=== PATIENT | male | born 1965 | race African-American/Black ===

== ENCOUNTER → 2016-12-07 09:13 | Outpatient (CLI) | payer MEDICARE ==
[2016-12-07 10:12] LABS: ALBUMIN 3.4 g/dL (3.4-5.0); BILIRUBIN - DIRECT 0.11 mg/dL (0.00-0.30); BILIRUBIN - INDIRECT 0.22 mg/dL (0.00-1.00); BILIRUBIN - TOTAL 0.33 mg/dL (0.2-1.3); PROTEIN - SERUM 8.2 g/dL (6.4-8.2)
== END | disposition home or self-care (01) ==
LOC: D.US 09:13
PROVIDERS: Internal Medicine Gastroenterology
DX: K76.0 Fatty (change of) liver, not elsewhere classified (principal)

== ENCOUNTER → 2017-06-09 09:01 | Outpatient (CLI) | payer MEDICARE ==
[~2017-06-09 09:01] MED LIST: OMEPRAZOLE20 M1 PO; PEPCID40 MG PO; TIMOPTIC 0.5 % O5 ML RIGHT EYE; ZESTORETIC 20-1 EACH PO
[2017-06-09 10:02] LABS: ALBUMIN 3.2 g/dL (3.4-5.0); BILIRUBIN - DIRECT 0.18 mg/dL (0.00-0.30); BILIRUBIN - INDIRECT 0.5 mg/dL (0.00-1.00); BILIRUBIN - TOTAL 0.68 mg/dL (0.2-1.3); PROTEIN - SERUM 8.2 g/dL (6.4-8.2)
== END | disposition home or self-care (01) ==
LOC: D.US 09:01
PROVIDERS: Internal Medicine Gastroenterology
DX: K76.0 Fatty (change of) liver, not elsewhere classified (principal)

== ENCOUNTER 2017-07-20 07:47 | Outpatient (CLI) | payer MEDICARE ==
[2017-07-20 08:35] LABS: BASOPHILS 0.3 % (0-2); EOSINOPHILS 6.1 % (0-7); HEMATOCRIT 40.9 % (42.0-54.0); HEMOGLOBIN 13.9 g/dL (13.5-17.5); IMMATURE GRANULOCYTES 0.3 % (0-5); LYMPHOCYTES 30.8 % (15-50); MCH 32.2 pg (26.0-34.0); MCV 94.7 fL (80.0-100.0); MEAN PLATELET VOLUME 11.4 fL (7.4-10.4); MONOCYTES 9.1 % (2-11); NEUTROPHILS 53.4 % (40-80); PLATELET COUNT 143 10x3/uL (130-400); RBC 4.32 10x6/uL (4.20-6.10); RDW 12.7 % (11.5-14.5)
[2017-07-20 08:54] LABS: ANION GAP 12.3 mmol/L (8-16); CALCIUM 9.4 mg/dL (8.5-10.1); CARBON DIOXIDE 28.5 mmol/L (21.0-32.0); CREATININE - SERUM 1.3 mg/dL (0.6-1.3); POTASSIUM - SERUM 3.8 mmol/L (3.5-5.1)
[2017-07-20 09:03] LABS: APTT 24.9 SECONDS (22.8-39.4); PROTIME 13.1 SECONDS (11.6-15.0)
[2017-07-20] MEDS ORDERED: ZESTORETIC 20-1 EACH PO (09:07)
[2017-07-20] MEDS ORDERED: PEPCID40 MG PO (09:08)
[2017-07-20] MEDS ORDERED: OMEPRAZOLE20 M1 PO (09:08)
[2017-07-20] MEDS ORDERED: TIMOPTIC 0.5 % O5 ML RIGHT EYE (09:09)
[2017-07-20 09:16] VITALS: BP 129/91; BMI 46.0
--- NOTE | 2017-07-20 17:37 | NUR ---
1225--ALL VITAL SIGNS AND ASSESSMENTS CHARTED ON POST PROCEDURE VITAL SIGN SHEET ON CHART. MANAS ROSARIO 1600--IV DC'D. MANAS ROSARIO [id number]--DISCHARGE INSTRUCTIONS GIVEN, PT VERBALIZES UNDERSTANDING. PT OFF UNIT VIA WC. MANAS ROSARIO
== END 2017-07-20 16:24 | disposition home or self-care (01) ==
LOC: D.OPS 07:47
PROVIDERS: General Practice
DX: K76.0 Fatty (change of) liver, not elsewhere classified (principal); I51.7 Cardiomegaly; Z01.812 Encounter for preprocedural laboratory examination